=== PATIENT | male | born 1995 | race Caucasian/White ===

== ENCOUNTER 2018-01-18 14:56 | Emergency (ER) | payer SELFPAY | END 2018-01-18 19:35 | disposition other institution (70) | LOC: D.ER 14:56 | DX: S16.1XXA Strain of muscle, fascia and tendon at neck level, initial encounter (principal); V43.52XA Car driver injured in collision with other type car in traffic accident, initial encounter; Y93.89 Activity, other specified; Y92.410 Unspecified street and highway as the place of occurrence of the external cause; S29.012A Strain of muscle and tendon of back wall of thorax, initial encounter; M62.838 Other muscle spasm; G93.5 Compression of brain; Z85.820 Personal history of malignant melanoma of skin ==